=== PATIENT | male | born 1995 | race Caucasian/White ===

== ENCOUNTER 2017-03-07 23:44 | Emergency (ER) | payer MEDICAID ==
[~2017-03-07] VITALS: Ht 167.6 cm; Wt 81.6 kg
[2017-03-08 00:35] VITALS: BP 129/79
--- NOTE | 2017-03-08 00:35 | Emergency Room Report ---
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 Can't isolate an injury associated with the pain. Onset of symptoms date/time:02/28/17 or onset unknown for: Treatment Prior to Arrival: employee health 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 Provided by:NURSE Sepsis Risk Assessment: Temp: 98.9 B/P: 129/79 MAP: 95 Pulse: 70 Resp: 14 Recent fever? N Clinical Suspician of Infection? N Mental Status: 1 - Regular (Normal Baseline) Sepsis Risk:Low Sepsis Risk Have you (or family members/close friends) recently traveled outside the [place]? N If Yes, where/when: Have you had exposure to infectious disease within the past month? N TB? Other? Specify: Source patient Exam Limitations no limitations Comment pt with rt wrist pain with no def trauma and worse with use Cardiac Chest Pain Chest pain indicative of cardiac No Timing/Duration this evening Severity moderate ALLERGIES Coded Allergies: NSAIDS (Non-Steroidal Anti-Inflamma (Severe, 03/08/17) Sulfa (Sulfonamide Antibiotics) (06/13/15) Home Medications Active Scripts ACETAMINOPHEN/DIPHENHYDRAMINE (Percogesic 325-12.5 MG Tablet) 1 TAB PO QIDP PRN pain #28 TAB Prov: 04/13/16 Cyclobenzaprine Hcl (Flexeril) 10 MG PO BID PRN pain #20 TAB Prov: 04/13/16 Reported Medications No Home Medications (NO HOME MEDICATIONS) 1 EACH XX ONCE History Medical History General CAD? No Angina: No [place]: No Hypertension? No Hyperlipidemia? No CHF? No DVT? No PE? No COPD? No Asthma? Yes Anemia? No GERD? No Gastric ulcers? No GI Bleed? No Hernia? No Thyroid Problems? No Hypothyroidism? No CVA? No Seizures? No Diabetes? No Renal Insuffiency? No End Stage Renal Disease? No UTI? No Stones? No BPH? No GB Disease: No Nephritic Syndrome? No Asplenia? No Hepatitis? No Sickle Cell Disease? No Arthritis? No Migraines? Yes Cataracts? No Glaucoma? No MRSA? No HIV? No TB? No Anxiety? No Depression? No Cancer? No More? No Immunization Hx DT/Tetanus 1-4 Years Ago Surgical Hx Previous Surgery?N Social History Smoking Hx Smoker: Former Smoker Tobacco: No Packs/day N/A Alcohol Alcohol: Yes Drugs none Review of Systems All Other Systems Reviewed and Negative Constitutional denies fever Eyes denies drainage ENT denies: ear discharge, epistaxis. Respiratory denies cough Cardiovascular denies chest pain, denies syncope Gastrointestinal denies abdominal pain, denies diarrhea, denies vomiting Genitourinary denies: dysuria, frequency, hesitancy, hematuria. Musculoskeletal see HPI, denies back pain, joint pain, denies joint swelling, denies neck pain Skin denies rash Psychiatric/Neurological denies headache, denies seizure Physical Exam Vital Signs Vital Signs Date Time Temp Pulse Resp B/P Pulse O2 O2 Flow FiO2 Ox Delivery Rate 03/07 2353 98.9 70 14 129/79 100 - WBC >12,000 or <4,000 or 10% bands? 2 or more SIRS Criteria Met? B/P:129/79 MAP:95 Creatinine >2.0? UA output<0.5ml/kg/hr for 2 hrs? Platelet count >100,000? Lactate >2.0mmol/1? INR >1.2 or PTT > than 60 sec? Evidence of Organ Dysfunction? Provider documented clinical suspician of infection? N Sepsis Criteria Count: 0 Sepsis Risk: Low Sepsis Risk General Appearance no apparent distress Eye Exam - bilateral eye PERRL, bilateral eye EOMI Ear, Nose, Throat normal ENT inspection Neck supple Respiratory Status No: respiratory distress. 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 No Results/Orders Orders Procedure Date/time Status WRIST-3 VIEWS-RT 03/08 0005 Active XRAY/CT/US XRAY/CT/US XRAY wrist XR interpretation by reviewed by me Xray Results no fracture seen Departure Departure Time of Disposition 0029 Disposition DC Home or Self Care(routine) Clinical Impression Primary Impression: Arthralgia Qualifiers: Joint pain location: wrist Laterality: right Qualified Code: M25.531 - Pain in right wrist Condition STABLE Patient Instructions DI for Wrist Pain Additional Instructions use splint and meds and see pcp for follow up Discharge Counseling Counseled pt/family regarding diagnosis, test results, medications/RX, follow up needs Prescriptions Current Visit Scripts Prednisone (Prednisone 20MG) 20 MG PO BID #10 TAB ED Critical Care Critical Care No at 0035
--- NOTE | 2017-03-08 05:26 | RADIOLOGY REPORT PS360 ---
WRIST-3 VIEWS-RT HISTORY: PAIN, SWELLING AND POPPING SENSATION ORDERING PHYSICIAN: Frank Dominguez MD PATIENT AGE: 21 years COMPARISON: None FINDINGS: No fracture or dislocation. No lytic or blastic change. There is normal mineralization.. The joint spaces are well-preserved. No significant degenerative/arthritic changes. No erosive changes evident.. IMPRESSION: Negative wrist
--- OUTSIDE RECORDS SUMMARY | 2017-03-18 01:47 | External Medical Summary Rpt | CCD ---
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 T[facility] E REFRACTIV INC E STATE FRAMES V2020 [facility], PURCHASES 9 CLINIC TERR[facility] E INC SPHERE V2100 [facility], SINGLE 9 [facility]IN[facility] E VISION INC PLANO +/- 4.00 PER LENS UNCLASSIF J3490 [facility] IED DRUGS 9 [facility] MEDICAL MEDICAL CENT CENT RADEX 76608 [facility], HAND 9 [place] SHYAM N MINIMUM 3 IMAGING VIEWS PSC APPLICATI 98334 [facility] ON SHORT 9 [facility] ARM MEDICAL MEDICAL SPLINT CENT CENT FOREARM-H AND STATIC FITTING 42354 [facility], SPECTACLE 8 CLINIC TERRY E S XCPT INC APHAKIA MONOFOCAL FRAMES V2020 [facility], PURCHASES 8 [facility]IN[facility] TERR[facility] E INC SPHERE 10-31-200 V2100 [facility], SINGLE 8 CLINIC TERRY Rascon VISION INC PLANO +/- 4.00 PER LENS SPHERE V2100 [facility], SINGLE 8 CL[facility] E VISION INC PLANO +/- 4.00 PER LENS FRAMES V2020 [facility], PURCHASES 8 [facility]IN[facility] T[facility] Rascon INC FITTING 71535 [facility], SPECTACLE 8 CLIN[facility] T[facility] Rascon S XCPT INC APHAKIA MONOFOCAL DETERMINA 67363 [facility], TION 8 [facility] T[facility] Rascon REFRACTIV INC E STATE OPHTH 45538 [facility], MEDICAL 8 CLINIC TERR[facility] Rascon XM&EVAL INC COMPRE NEW PT 1/> VST Encounters Encounter Start End Date Code Location Performer Type Date OFFICE 35466 [facility] STEWART OUTPATIEN 6 6 [facility] T [facility] [place] 25 CO MINUTES OFFICE 05957 Neli CLINE OUTPATIEN 6 6 [facility] CANTU T VISIT PSC 15 MINUTES OFFICE 81350 [facility] MAR CONSULTAT 6 6 [facility] [place] NEW/ESTAB CO PATIENT 60 MIN HOSPITAL [facility] - 6 6 [facility] OUT[facility] INC T EMERGENCY 74743 [facility] 6 6 [facility] INC T VISIT LOW/MODER SEVERITY EMERGENCY 16538 SATINDER VASQUEZ 6 6 PHYSICIAN [facility] T VISIT MODERATE SEVERITY HOSPITAL [facility] - 6 6 [facility] OUTPATIEN INC T EMERGENCY 57151 [facility] 6 6 [facility] EMERGENCY T VISIT PHYS HIGH/URGE NT SEVERITY HOSPITAL [facility] - 6 6 N OUTPATIEN COMMUNTIY T HOSPITA EMERGENCY 10713 [facility] 6 6 [facility] VISIT HOSPITA HIGH/URGE NT SEVERITY EMERGENCY 59881 SATINDER GOMEZ 6 6 PHYSICIAN U [facility] T VISIT MODERATE SEVERITY HOSPITAL A[facility] - 6 6 [facility] OUTPATIEN INC T EMERGENCY 52914 ANALI 6 6 [facility] DEPARTMEN INC T VISIT HIGH/URGE NT SEVERITY OFFICE 46131 SARAH BELL TARAN OUTPATIEN 5 5 LES T VISIT COMMUNITY 15 HEALTH C MINUTES OFFICE 19501 SARAH CO TARAN OUTPATIEN 4 4 LES T VISIT COMMUNITY 15 HEALTH C MINUTES OFFICE 77896 [facility] OUTPATIEN 4 4 T NEW 45 MINUTES HOSPITAL AVELINO Kidd - 4 4 [facility] JAL - 4 REGIONAL OUTPATIEN MEDICAL T CE [facility] [place] [address] 4 REGIONAL OUTPATIEN MEDICAL T CE OFFICE 23213 SARAH LA TARAN OUTPATIEN 4 4 LES T VISIT COMMUNITY 25 HEALTH C MINUTES [facility] [place] 68[address] 4 REGIONAL OUTPATIEN MEDICAL T CE HOSPITAL AVELINO Kidd [facility] 4 4 [facility] REGIONAL T ME EMERGENCY 36840 [facility], 4 4 [facility] EMERGENC[facility] T VISIT PHYSI HIGH/URGE NT SEVERITY EMERGENCY 84712 AVELINO Kidd 4 4 [facility] REGIONAL T VISIT IN MODERATE SEVERITY HOSPITAL JAL - 4 REGIONAL OUTPATIEN MEDICAL T CE EMERGENCY 57821 JAL 4 4 [facility] MEDICAL T VISIT CE MODERATE SEVERITY OFFICE 53403 [facility] 1 1 [facility] 75442 [facility] 1 1 [facility]ES OFFICE 64571 [facility] OUT[facility] 1 1 [facility] MIN[facility]ES OFFICE 20202 SARAH BELL TARAN OUTPATIEN 0 0 LES T VISIT COMMUNITY 15 HEALTH C MINUTES HOSPITAL AVELINO B - 0 0 [facility] OUT[facility] REGIONAL T ME OFFICE 85454 SARAH BELL TARAN OUTPATIEN 0 0 LES T VISIT COMMUNITY 15 HEALTH C MINUTES OFFICE 48062 SARAH BELL TARAN OUTPATIEN 0 0 LES T VISIT COMMUNITY 15 HEALTH C MINUTES OFFICE 21520 PROFLYNDSAY REBOLLEDO, OUTPATIEN 0 0 NAL EYE NATACHA T VISIT [facility] 10 MINUTES OFFICE 53297 [facility] 0 0 [facility]ES [facility] 07802 [facility] 0 0 [facility] MIN[facility]ES OFFICE 02628 [facility]PAT[facility] 0 0 [facility] MIN[facility]ES OFFICE 34736 [facility] OUTPATI[facility] 0 0 [facility]IS[facility] MIN[facility]ES OFFICE 27044 SARAH CARRENO OUTPATIEN 0 0 [facility]ANE [facility] 10 COMMUNITY MINUTES HEALTH C OFFICE 44036 [facility]PATIEN 0 0 [facility]ES OFFICE 46603 [facility] OUTPATIEN 0 0 [facility] T [facility]IS[facility] MINUTES OFFICE 73608 [facility] OUTPATIEN 0 0 [facility] T VISIT [facility] MINUTES OFFICE 97210 [facility] OUTPATI[facility] 0 0 [facility] T VISIT [facility] MINUTES OFFICE 96587 [facility] OUTPATIEN 0 0 [facility] T [facility]IS[facility] MINUTES OFFICE 56744 [facility] OUTPATIEN 0 0 [facility] T [facility]ISIT [facility] MINUTES OFFICE 78554 [facility] OUTPATIEN 0 0 [facility] T [facility]IS[facility] MINUTES OFFICE 64796 [facility] OUTPATIEN 0 0 [facility] T [facility]IS[facility] MINUTES OFFICE 39191 [facility] OUTPATIEN 0 0 [facility] T VISIT [facility] MIN[facility]ES OFFICE 54853 [facility] OUTPATIEN 0 0 [facility] T VISIT [facility] MINUTES OFFICE 00541 [facility] OUTPATIEN 0 0 [facility] T VISIT [facility] MINUTES OFFICE 94427 [facility] OUTPATIEN 0 0 [facility] T VISIT [facility] MINUTES OFFICE 96598 [facility] OUTPATIEN 0 0 [facility] T VISIT [facility] MINUTES OFFICE 49026 [facility] OUTPATIEN 0 0 [facility] T VISIT [facility] MINUTES OFFICE 08404 [facility] OUTPATIEN 0 0 [facility] T VISIT [facility] MINUTES OFFICE 89317 [facility] OUTPATIEN 0 0 [facility] T VISIT [facility] MINUTES OFFICE 70840 [facility] OUTPATIEN 0 0 [facility] T VISIT [facility] MINUTES OFFICE 63668 [facility] OUTPATIEN 9 9 [facility] T VISIT [facility] MINUTES OFFICE 99912 [facility] OUTPATIEN 9 9 [facility] T VISIT [facility] MINUTES OFFICE 59768 [facility] OUTPATIEN 9 9 [facility] T [facility]IS[facility] MINUTES EMERGENCY 14472 AVELINO Kidd 9 9 [facility]PART[facility] REGIONAL T VISIT MEDIC MODERATE SEVERITY HOSPITAL AVELINO Kidd - 9 9 [facility] OUTPATIEN REGIONAL T MEDIC OFFICE 71224 [facility] 9 9 [facility] T VISIT [facility] MINUTES OFFICE 20432 [facility] OUTPATIEN 9 9 [facility] T VISIT [facility] 10 [facility] MINUTES OFFICE 61615 [facility] OUTPATI[facility] 9 9 [facility]ALTH [facility]EN[facility] T VISIT [facility] 10 [facility] MINUTES OFFICE 64951 [facility] OUTPATIEN 9 9 HEALTH [facility]ENTRAL T VISIT [facility] 10 [facility] MINUTES OFFICE 91733 [facility] OUTPATIEN 9 9 [facility]ALTH [facility] T VISIT [facility] 10 [facility]ANK [facility] MINUTES OFFICE 12007 [facility] OUTPATIEN 9 9 HEALTH [facility] T VISIT [facility] 10 [facility] MINUTES OFFICE 20527 [facility] OUT[facility] 9 9 [facility]ALTH [facility] T VISIT [facility] 10 [facility] MINUTES EMERGENCY 20115 AVELINO B 9 9 [facility] REGIONAL T VISIT MEDIC HIGH/URGE NT SEVERITY HOSPITAL AVEL[facility] B - 9 9 [facility] REGIONAL T MEDIC OFFICE 50216 [facility] 9 9 HEALTH [facility] T VISIT [facility] MINUTES OFFICE 61223 [facility] 9 9 HEALTH [facility]TR[facility] T VISIT [facility] 15 [facility]ANK [facility] MINUTES HOSPITAL JAL - 9 9 REGIONAL OUTPATIEN MEDICAL T CENT EMERGENCY 44983 PENDING [facility] TO [facility], 9 9 EMERGENCY [facility] T VISIT PHYSICIAN MODERATE S SEVERITY OFFICE 02861 [facility] OUT[facility] 9 9 [facility]ALTH [facility]ENTR[facility] T VISIT [facility] MINUTES OFFICE 04775 [facility] 9 9 HEALTH [facility] T VISIT [facility] 10 [facility] MINUTES OFFICE 98621 [facility] OUTPATI[facility] 9 9 HEALTH [facility]EN[facility]AL T VISIT [facility] 10 [facility] MINUTES OFFICE 17492 [facility] 9 9 HEALTH [facility]ENTR[facility] T VISIT [facility] 10 [facility] MINUTES OFFICE 24815 GALDAMEZ GALDAMEZ OUTPATIEN 9 9 III, III, T VISIT ART Sawyer 10 MINUTES OFFICE 79852 [facility] 9 9 [facility]ALTH [facility] T VISIT [facility] 10 [facility] MINUTES OFFICE 58991 [facility] OUTPATI[facility] 9 9 HEALTH [facility]ENTRAL T VISIT [facility] 15 [facility]ANK [facility] MINUTES OFFICE 86380 [facility] OUTPATI[facility] 9 9 HEALTH [facility]ENTRAL T VISIT [facility] 10 [facility] MINUTES OFFICE 41518 [facility] OUTPATI[facility] 9 9 HEALTH [facility]AL T VISIT [facility] 10 [facility]ANK [facility] MINUTES OFFICE 77853 [facility] OUTPATI[facility] 9 9 HEALTH [facility]ENTRAL T VISIT [facility] 15 [facility] MINUTES OFFICE 10053 GALDAMEZ GALDAMEZ OUTPATIEN 9 9 III, III, T VISIT [facility] [facility] 10 MINUTES OFFICE 81643 [facility] [place] OUTPATIEN 9 9 [facility] CO [facility] T VISIT [facility] 15 BANK ACCT MINUTES OFFICE 05472 [facility] [place] OUTPATIEN 9 9 [facility] T VISIT [facility] 10 BANK ACCT MINUTES OFFICE 84083 GALDAMEZ GALDAMEZ OUTPATIEN 8 8 III, III, T VISIT [facility] 10 MINUTES OFFICE 35268 GALDAMEZ GALDAMEZ OUTPATIEN 8 8 III, III, T VISIT [facility] [facility] 10 MINUTES OFFICE 27291 GALDAMEZ GALDAMEZ OUTPATIEN 8 8 III, III, T VISIT [facility] [facility] 10 MINUTES OFFICE 33814 GALDAMEZ GALDAMEZ OUTPATIEN 8 8 III, III, T NEW 20 ART W ART W MINUTES OFFICE 57262 [facility] OUT[facility] 8 8 [facility] [address] [address] [facility]ES [facility] 70052 [facility] OUTPATIEN 8 8 [facility] T [facility] [address] [facility] MINUTES OFFICE 04015 [facility] OUTPATIEN 8 8 [facility]ALTH [place] T [facility]ISIT [address] [facility] MINUTES OFFICE 19852 [facility] OUTPATIEN 8 8 [facility]ALTH [facility] T [facility]IT [address] [facility] MIN[facility]ES
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
--- OUTSIDE RECORDS SUMMARY | 2017-03-18 01:51 | External Medical Summary Rpt | CCD ---
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 [facility] 10 [facility]ANK [facility] MINUTES OFFICE 89651 RUDOLPH GALDAMEZ OUTPATIEN 9 9 III, III, T VISIT ART W ART W 10 MINUTES OFFICE 84833 [facility] 9 9 [facility] T VISIT [facility] 10 [facility] MINUTES OFFICE 93629 [facility] 9 9 [facility]AL T VISIT [facility] 15 [facility]ANK [facility] MINUTES OFFICE 34292 [facility] 9 9 [facility]EN[facility] T VISIT [facility] 10 [facility]ANK [facility] MINUTES OFFICE 50475 [facility] 9 9 HEALTH CENTRAL T VISIT [facility] 10 BANK ACCT SCHOOL MINUTES OFFICE 01607 [facility] 9 9 HEALTH CENTRAL T VISIT [facility] 15 BANK ACCT S[facility]OL MINUTES OFFICE 23985 GALDAMEZ G[facility] OUTPATIEN 9 9 III, III, T VISIT ART W ART W 10 MINUTES OFFICE 04419 [facility] OUTPAT[facility] 9 9 HEALTH CO HIGH T VISIT [facility] 15 BANK ACCT MINUTES OFFICE 39161 [facility] [place] OUTPAT[facility] 9 9 HEALTH CO HIGH T VISIT [facility] 10 BANK ACCT MINUTES OFFICE 19759 GALDAMEZ GALDAME[facility] OUTPATIEN 8 8 III, III, T VISIT ART W ART W 10 MINUTES OFFICE 01415 GALDAME[facility] OUTPATIEN 8 8 III, III, T VISIT ART W ART W 10 MINUTES OFFICE 38153 G[facility] OUTPAT[facility] 8 8 III, III, T VISIT ART W ART W 10 MINUTES OFFICE 96656 [facility] OUTPATI[facility] 8 8 III, III, T NEW 20 ART W ART W MINUTES OFFICE 15590 [facility] 8 8 HEALTH SMALL T VISIT [facility] 15 BANK ACCT CLIF MINUTES OFFICE 01606 [facility] 8 8 HEALTH SMALL T VISIT [facility] 15 BANK ACCT CLIF MINUTES OFFICE 20812 [facility] 8 8 HEALTH SMALL T VISIT [facility] 15 BANK ACCT CLIF MINUTES OFFICE 94377 [facility] 8 8 HEALTH SMALL T VISIT [facility] 15 BANK ACCT CLIF MINUTES
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
--- OUTSIDE RECORDS SUMMARY | 2017-03-18 01:52 | External Medical Summary Rpt | CCD ---
Author Author , OVIDIO Organization OVIDIO Address Unknown Phone [email or web address] Immunization Name Date Rout CVX Reac Dose Comm Prov Is Faci e tion ent ider Refu lity Give sed n Td 03-3 9 999 Hist H158 No H158 (araceli 1-20 oric lt), 05 al Info adso rmat rbed ion - Sour ce Unsp ecif ied
--- OUTSIDE RECORDS SUMMARY | 2017-03-18 01:52 | External Medical Summary Rpt | CCD ---
Author Author , OVIDIO Organization OVIDIO Address Unknown Phone [email or web address] Immunization Name Date Rout CVX Reac Dose Comm Prov Is Faci e tion ent ider Refu lity Give sed n Td 03-3 9 999 Hist H158 No H158 (araceli 1-20 oric lt), 05 al Info adso rmat rbed ion - Sour ce Unsp ecif ied
== END 2017-03-08 00:35 | disposition home or self-care (01) ==
LOC: ER 23:44
PROC: 2W3CX1Z Immobilization of Right Lower Arm using Splint (ICD-10-PCS; principal; 2017-03-08)
DX: M25.531 Pain in right wrist (principal); Z88.2 Allergy status to sulfonamides; J45.909 Unspecified asthma, uncomplicated; Z87.81 Personal history of (healed) traumatic fracture